=== PATIENT | female | born 1995 | race African-American/Black ===

== ENCOUNTER 2017-10-18 12:36 | Inpatient (IN) | payer OTHER ==
[~2017-10-18 12:36] MED LIST: Dexamethasone 20 MG/5 ML VIAL ONE; Glycopyrrolate 0.2 MG/ML 5 ML SYRINGE ONE; ISOVUE-370 76%-LOCM 1 ML ONE; Lidocaine 1% PF 5 ML VIAL ONE; Ondansetron HCl/PF 4 MG/2 ML Vial ONE; PROPOFOL 200 MG/20 ML VIAL ONE; Succinylcholine Chloride 20 MG/ML 10 ml SYRINGE FS ONE
[2017-10-18 14:03] LABS: #Eosinphils 0.2 thou/uL (0.0-0.7); #Lymphocytes 0.9 thou/uL (1.20-3.40); #Monocytes 0.6 thou/uL (0.11-0.59); #Neutrophils 14.2 thou/uL (1.40-6.50); %Basophils 0.2 % (0.0-1.0); %Eosinophils 1.1 % (0.0-10.0); %Lymphocytes 5.5 % (28.0-48.0); %Monocytes 3.8 % (0.0-4.0); %Neutrophils 89.5 % (31.0-61.0); Mean Corpuscular HGB CONC 32.5 g/dL (32.0-36.0); Mean Corpuscular Hemoglobin 26.5 pg (25.0-35.0); Mean Corpuscular Volume 81.3 fL (78.0-98.0); Mean Platelet Volume 7.7 fL (7.4-10.4); Platelet Count 347 thou/uL (130-400); RBC Distribution Width 13.3 % (11.5-14.5); Red Blood Cell (RBC) Count 4.55 mill/uL (4.00-5.20); White Blood Cell (WBC) Count 15.9 thou/uL (4.8-10.8)
[2017-10-18 14:32] LABS: ALT (SGPT) 11 U/L (8-55); AST (SGOT) 14 U/L (5-34); Alkaline Phosphatase 76 U/L (40-150); Anion Gap 16 mmol/L (10-20); BUN (Urea Nitrogen) 5 mg/dL (7.0-18.7); Calc. Creatinine Clearance 0 mL/min (70-130); Calcium 9.3 mg/dL (7.8-10.44); Carbon Dioxide 20 mmol/L (22-29); Chloride 102 mmol/L (98-107); Estimated GFR-MDRD 85; Globulin 4.5 g/dL (2.4-3.5); Glucose 75 mg/dL (70-105); Lipase 19 U/L (8-78); Protein, Total 8.5 g/dL (6.0-8.3); Sodium 135 mmol/L (136-145)
[2017-10-18 14:34] LABS: Pregnancy Test - Urine (BHCG) Negative (Negative); Pregu Control Background? CLEAR/WHITE (CLR/WHITE); Pregu Control Bar Appear? YES (CONTROL BAR); Specific Gravity 1.023 (1.002-1.036)
[2017-10-18 14:44] LABS: Potassium 2.8 mmol/L (3.5-5.1)
[2017-10-18] MEDS ORDERED: Potassium Chloride 20 MEQ/100 ML PREMIX BAG ONE (14:51)
[2017-10-18] MEDS ORDERED: Potassium Chloride 20 MEQ TAB ONE (14:51)
[2017-10-18] MEDS ORDERED: Magnesium Sulfate 2 GM in Sodium Chloride 0.9% 100 ML IVPB SCH (15:00)
[2017-10-18] MEDS ORDERED: Magnesium 2 GM/NS 0.9% 100 ML 2 GM in Premix Bag 1 BAG IVPB SCH (15:00)
[2017-10-18] MEDS ORDERED: Piperacillin/Tazobactam 3.375 GM VIAL ONE ×2 (15:21→21:03)
--- NOTE | 2017-10-18 16:00 | CT ---
CT ABDOMEN AND PELVIS WITH IV CONTRAST: HISTORY: Abdomen and pelvis pain. Fever. FINDINGS: The lung bases are clear. The liver, spleen, kidneys, adrenal glands, and pancreas are unremarkable. A moderate amount of free fluid is present within the cul-de-sac. Lobular low density lesion at th e lower uterine segment is 2.7 cm and likely represents a fibroid. Dilated fluid filled loops of distal ileum measure up to 4.8 cm in diameter. Between the dilated ile al loops, there is circumferential wall thickening of the ileum in at least two places, with strandin g in the adjacent fat. The inflammation extends to the level of the terminal ileum. The appendix is partially aerated at the base of the cecum, without immediately adjacent inflammation. Slightly enl arged lymph nodes are present within the right lower quadrant. Best demonstrated on axial images 69 through 71, in the right lower quadrant, are three small pockets of gas that are unable to be accounted for by bowel content. IMPRESSION: Extensive inflammation of the bowel within the lower abdomen and pelvis, primarily involving the dist al and terminal ileum. Small extraluminal pockets of gas are consistent with perforation. Exact sit e and cause are not evident. Small amount of free fluid within the cul-de-sac. While an inflammatory process may represent irritable bowel disease, the presence of extraluminal gas is worrisome for an acute perforation. Please consider surgical consultation. Findings were called to Dr. Lynn in the emergency department at 1506 hours. CODE CR POS: [id number]
[2017-10-18] MEDS ORDERED: Bupivacaine/Epinephrine 0.25% 30 ML VIAL ONE (18:11)
[2017-10-18] MEDS ORDERED: HYDROcodone/Acetaminophen 5/325 mg Tablet PO PRN ×2 (18:47)
[2017-10-18] MEDS ORDERED: Ondansetron HCl/PF 4 MG/2 ML Vial IVP PRN ×2 (18:47→23:50)
[2017-10-18] MEDS ORDERED: Acetaminophen 325 MG TAB PO PRN (18:47)
[2017-10-18] MEDS ORDERED: Ondansetron ODT 4 MG TAB SL PRN (18:47)
[2017-10-18] MEDS ORDERED: D5 1/2 NS w/40 mEq KCL 1,000 ML IV SCH (19:00)
[2017-10-18] MEDS ORDERED: Potassium Chloride 20 MEQ in Premix Bag 1 BAG IVPB SCH (19:00)
[2017-10-18 19:53] VITALS: BMI 35.8
[2017-10-18] MEDS ORDERED: Fentanyl 250 MCG/5 ML VIAL ONE (20:33)
[2017-10-18] MEDS ORDERED: Midazolam HCl 2 mg/2 ml Vial ONE (20:33)
[2017-10-18] MEDS ORDERED: Sodium Chloride 0.9% 10 ML ONE (21:04)
--- NOTE | 2017-10-18 21:55 | HP ---
REASON FOR CONSULT: Possible bowel perforation. HISTORY OF PRESENT ILLNESS: Ms. Cook is a 22-year-old woman with right lower quadrant pain since . This has been persistent through the weekend and was not getting any better, so she came to [facility] emergency room. The pain was made worse by walking or moving. She has not really eaten since , so does not know if eating would make the pain worse. She has not had any high fevers or shaking chills and she has no past medical history of stomach problems. There is no family history of infla mmatory bowel disease, but a CT scan done in the emergency room showed inflammation of the terminal i leum with a moderate amount of free fluid and some free air in the area of the terminal ileum. REVIEW OF SYSTEMS: Ten system review of systems is negative except per HPI and some diarrhea and nory sea and anorexia. PAST MEDICAL HISTORY: None. PAST SURGICAL HISTORY: None. FAMILY HISTORY: Diabetes in her grandmother. No chronic medications. ALLERGIES: No known drug allergies. SOCIAL HISTORY: The patient does not smoke, drink or use illicit drugs. PHYSICAL EXAMINATION: VITAL SIGNS: Temperature 98.5, heart rate 102, blood pressure 128/67, respirations 16, 98% saturated on room air. GENERAL: Reveals a healthy appearing young woman in no acute distress, who is moving about [facility]. HEENT: Unremarkable. She is not jaundiced or icteric. She is not flushed or toxic. HEART: Regular in its rate and rhythm without murmurs, rubs or gallops. LUNGS: Clear to auscultation bilaterally. ABDOMEN: Soft and nondistended. She is diffusely mildly tender to palpation with more severe tender ness in the right lower quadrant and suprapubic area. She does have some mild rebound tenderness, bu t does not exhibit rigidity, or guarding. No palpable masses or hernias. EXTREMITIES: Warm and well perfused with normal pulses and no edema. NEUROLOGIC: No focal deficits. PSYCHIATRIC: Alert, oriented and appropriate. LABORATORY DATA AND IMAGING DATA: White count is elevated at 15,000. Potassium is low, but other el ectrolytes are unremarkable. CT images are reviewed and I agree with the written report, the appendi x is normal and filled with gas. ASSESSMENT: Possible bowel perforation associated with terminal ileitis suspicious for Crohn's disea se or inflammatory bowel disease. I have recommended diagnostic laparoscopy and washout if the bowel perforation is identified, then repair or resection may need to be undertaken if the bowel appears t o be significantly inflamed and an ileostomy might be necessary as reanastomosis in the setting of an active Crohn's flare is risky for leak. In addition, she does have evidence of Crohn's disease and appendectomy to prevent diagnostic confusion in the future will be done unless the cecum is also infl tyler. The diagnosis and recommended treatment was discussed with the patient. Inherent risks of the surgery including bleeding, infection, risks of anesthesia, damage to intestine and need for ostomy were discussed with the patient. She understands and accepts these risks and wishes to proceed. She has received Zosyn in the emergency room.
[2017-10-18] MEDS ORDERED: Piperacillin/Tazobactam 4.5 GM in Sodium Chloride 0.9% 100 ML IVPB SCH (22:00)
[2017-10-18] MEDS ORDERED: HYDROmorphone 0.5 MG/0.5 ML SYRINGE ONE (22:06)
[2017-10-19] MEDS ORDERED: hydrALAZINE 20 MG/ML VIAL SLOW IVP PRN (00:03)
[2017-10-19] MEDS ORDERED: Promethazine HCl 25 MG/ML VIAL IM PRN ×2 (00:03→02:42)
[2017-10-19] MEDS ORDERED: Ondansetron HCl/PF 4 MG/2 ML Vial IVP PRN ×2 (00:03→02:42)
[2017-10-19] MEDS ORDERED: Fentanyl 100 MCG/2 ML VIAL ONE (00:24)
[2017-10-19] MEDS ORDERED: D5 1/2 NS w/20 mEq KCL 1,000 ML ONE (00:39)
[2017-10-19] MEDS ORDERED: Ketorolac Tromethamine 30 MG/ML VIAL IVP SCH (01:45)
[2017-10-19] MEDS: D5 1/2 NS w/20 mEq KCL 1,000 ML IV SCH ×3 (01:59→18:51)
[2017-10-19] MEDS ORDERED: diphenhydrAMINE 25 MG CAP PO PRN (02:42)
[2017-10-19] MEDS ORDERED: diphenhydrAMINE 50 MG/ML VIAL IVP PRN (02:42)
[2017-10-19] MEDS ORDERED: Naloxone HCl 0.4 mg/ml Vial IV PRN (02:42)
[2017-10-19] MEDS ORDERED: diphenhydrAMINE 50 MG/ML VIAL IM PRN (02:42)
[2017-10-19] MEDS ORDERED: Zolpidem Tartrate 5 MG TAB PO PRN (02:42)
[2017-10-19] MEDS ORDERED: Communication Order-Pharmacy FS SCH (02:45)
[2017-10-19] MEDS: fentaNYL Citrate/PF 2,000 MCG in Sodium Chloride 0.9% 60 ML IV PRN (02:56)
[2017-10-19] MEDS: Acetaminophen 1,000 MG in Premix Bag 1 BAG IVPB SCH ×4 (03:44→22:37)
[2017-10-19] MEDS ORDERED: Acetaminophen 1,000 MG in Premix Bag 1 BAG IVPB SCH (06:00)
[2017-10-19] MEDS: Ketorolac Tromethamine 30 MG/ML VIAL IVP SCH ×3 (06:10→18:45)
[2017-10-19] MEDS: Piperacillin/Tazobactam 3.375 GM in Sodium Chloride 0.9% 100 ML IVPB SCH ×3 (06:10→18:46)
[2017-10-19] MEDS: Famotidine/PF 20 mg/2ml Vial SLOW IVP SCH ×2 (10:54→22:36)
[2017-10-19] MEDS: Famotidine 20 MG TAB PO SCH ×2 (11:51→23:20)
[2017-10-19] MEDS: Enoxaparin Sodium 40 MG/0.4 ML SYRINGE SC SCH (22:36)
--- NOTE | 2017-10-19 23:47 | CON ---
DATE OF CONSULTATION: 10/19/2017 HISTORY OF PRESENT ILLNESS: Ms. Cook is a 22-year-old female who came in last night with severe abd ominal pain. She was found to have free air on CAT scan and brought to the operating room, where she was found to have perforated ileum with inflammation and creeping fat consistent with inflammatory b owel disease. She had a foot of her distal small bowel resected and she had a primary ileocolonic an astomosis. Dr. Cortez notes that there were no signs of abscess or prolonged infection. She thinks the perforation was acute. Ms. Cook feels better this morning. We have been asked to see her with regard to the possibility that she could have Crohn's disease. In talking with her, she said she stubbs s had problems on and off with her stomach for some time. 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 She said back when she was a senior in high school, she kind of started having some problems where at time she gets indigestion and reflux, not want to eat. 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 She denies any history of arthralg ias, myalgias, or rashes. She has history of oral ulcers. She really was not having any lower abdom inal pain, but had some alternating bowel function and was just having a lot of reflux. It was diffi cult to control more recently. She said she has been seen at our office and had been treated for Hel icobacter pylori. She had some other evaluation there and had been there a couple of times, but she does not remember who her physician was. CAT scan on admission besides the perforation did show extensive inflammation of her bowel from lower abdomen and pelvis involving the distal and terminal ileum. Also, there were some extraluminal gas pockets, which precipitated surgery. Presently, she is feeling well. PAST MEDICAL HISTORY: Otherwise negative except for reflux. PAST SURGICAL HISTORY: None. FAMILY HISTORY: Diabetes in grandmother. No chronic medical problems or malignancy as far she knows . She did have one maternal grandmother who had an ostomy before, but I think that was from chronic obstipation and constipation. ALLERGIES: None known. PRESENT MEDICATIONS: Tylenol p.r.n., fentanyl p.r.n., Pepcid p.r.n., Toradol p.r.n., , Zofran, Zosyn. PHYSICAL EXAMINATION: GENERAL: The patient is resting comfortably in bed. Her parents were at the bedside. She is an Afr ican-[place]incent[place] female in no distress. VITAL SIGNS: Temperature was 98, pulse 70. She was mildly febrile and her pulse 110 on admission. Blood pressure 104/70. HEENT: Oropharynx is without lesions and without any ulcers or erosions. NECK: Supple without adenopathy. LUNGS: Clear. HEART: Regular rate and rhythm without murmurs. ABDOMEN: Slightly tender without rebound or guarding. EXTREMITIES: No clubbing, cyanosis, or edema. NEUROLOGIC: Grossly intact. SKIN: Without lesions. LABORATORY DATA: In July, she had a white count of 8.4 with hemoglobin 11.8 and platelets of 539. Wh ite count this admission was 15.9 with hemoglobin 12.0, platelet count 347. On admission, her sodium was 135, potassium 2.8, BUN and creatinine of 5 and 0.85. Liver function test is normal. Protein 8 .5, albumin 4, globulin 4.5, lipase 19. Serology for H. pylori have been positive back in July. ASSESSMENT: This is a 22-year-old female who began to have severe lower abdominal pain on Wednesday, stubbs s progressed. She also presented yesterday with a CT showing some chronic inflammatory changes in di stal small bowel and free air around the cecum and ileum which sounds a perforation. She was brought to the OR where she was found to have about a foot of creeping fat in the distal terminal ileum, and thickened and malformed bowel with proximal dilatation. This was resected and the free air and free fluid was cleared in the lower abdomen. She was given a primary anastomosis. She is doing well now . In all likelihood, this probably represents Crohn's disease. It seems that she did not have any s ignificant lower GI symptoms in talking to her and her family, but for several years, she has had on and off issues with some weight loss at times, difficulty with bowel function that has been somewhat nonspecific, and a lot of reflux and epigastric discomfort. In fact, she had recently been treated f or Helicobacter pylori. In retrospect, this is probably all ileal Crohn's. RECOMMENDATIONS: We would check QuantiFERON, hepatitis panels. I would recommend that she get immun izations for viruses such as shingles. We will await for pathology to come back and then she w ill probably need to be instituted on some type of therapy, probably biologic to help prevent remissi on in the setting of Crohn's with previous perforation requiring surgery. That would all again depen d on making a diagnosis of Crohn's; however, another etiology could be possible such as acute gastrit is with perforation, lymphoma, malignancy, or Meckel's disease with diverticulitis and ileum, althoug h these seem less likely from the appearances of the creeping fat and some chronic features on the CA T scan shows proximal small bowel dilatation of the terminal ileum.
[2017-10-20] MEDS: Ketorolac Tromethamine 30 MG/ML VIAL IVP SCH ×2 (00:28→06:20)
[2017-10-20] MEDS: Piperacillin/Tazobactam 3.375 GM in Sodium Chloride 0.9% 100 ML IVPB SCH ×5 (00:29→23:42)
[2017-10-20] MEDS ORDERED: Sodium Chloride 0.9% 500 ML IV SCH (02:00)
[2017-10-20 06:33] LABS: Hemoglobin 9.7 g/dL (12.0-16.0); Mean Corpuscular HGB CONC 31.8 g/dL (32.0-36.0); Mean Corpuscular Hemoglobin 26.2 pg (25.0-35.0); Mean Corpuscular Volume 82.6 fL (78.0-98.0); Mean Platelet Volume 7.2 fL (7.4-10.4); Platelet Count 357 thou/uL (130-400); RBC Distribution Width 13.5 % (11.5-14.5); Red Blood Cell (RBC) Count 3.68 mill/uL (4.00-5.20); White Blood Cell (WBC) Count 11.5 thou/uL (4.8-10.8)
[2017-10-20 06:55] LABS: Anion Gap 10 mmol/L (10-20); BUN (Urea Nitrogen) Less than 4 mg/dL (7.0-18.7); Calc. Creatinine Clearance 194 mL/min (70-130); Calcium 7.3 mg/dL (7.8-10.44); Carbon Dioxide 19 mmol/L (22-29); Chloride 113 mmol/L (98-107); Estimated GFR-MDRD Greater than 90; Glucose 122 mg/dL (70-105); Potassium 3.5 mmol/L (3.5-5.1); Sodium 138 mmol/L (136-145)
[2017-10-20 07:08] LABS: HBSAg Index 0.22 S/CO (0-0.99); Hep B Surf Ag Non-Reactive S/CO (NonReactive)
[2017-10-20] MEDS: D5 1/2 NS w/20 mEq KCL 1,000 ML IV SCH ×3 (07:43→18:17)
[2017-10-20] MEDS: Famotidine/PF 20 mg/2ml Vial SLOW IVP SCH ×2 (08:45→21:16)
[2017-10-20 08:59] LABS: Band 21 % (5-11); Burr Cells SLIGHT = 2-5 cells (100X) (0-1/hpf); Hypochromia SLIGHT = 6-15 cells (100X) (0-5/hpf); Lymphocytes 5 % (28-48); MDiff Complete? YES; Monocytes 3 % (0-4); Neutrophil 71 % (31-61); Ovalocytes SLIGHT = 2-5 cells (100X) (0-1/hpf); PLT Morphology Comment Appears Adequate; Polychromasia SLIGHT = 2-3 cells (100X) (0-2/hpf)
[2017-10-20] MEDS: Famotidine 20 MG TAB PO SCH ×2 (09:10→20:49)
[2017-10-20 09:39] LABS: Hep B Surf AB Reactive (NonReactive)
[2017-10-20 09:40] LABS: HBSAB Concentration 33.19 mIU/mL
--- NOTE | 2017-10-20 16:33 | PDOC.GSPN ---
Surgery Progress Note: Subj - Subjective Narrative: Pain is better today. She had a little nausea earlier but no vomiting. She has started to feel some rumbling of gas but has not passed any yet. She is afebrile with normal vital signs. Her abdomen is soft and nondistended. Bowel sounds are present. Per vein the is in place and ALDEN drainage is serous. She has presumptive Escherichia coli on her peritoneal cultures. Assessment/plan: Doing well status post ileocecectomy. Awaiting return of bowel function. Surgery Progress Note: Obj - Vital signs Vital signs: Vital Signs - Most Recent Temp Pulse Resp BP Pulse Ox 98.4 F 96 16 95/65 99 10/20/17 15:21 10/20/17 15:21 10/20/17 15:21 10/20/17 15:21 10/20/17 15:21 Surgery Progress Note: Results - Labs Result Diagrams: 10/20/17 06:09 10/20/17 06:09 Lab results: Laboratory Results - last 24 hr 10/20/17 10/20/17 10/20/17 06:09 06:09 06:09 WBC 11.5 H RBC 3.68 L Hgb 9.7 L Hct 30.4 L MCV 82.6 MCH 26.2 MCHC 31.8 L RDW 13.5 Plt Count 357 MPV 7.2 L Neutrophils % (Manual) 71 H Band Neuts % (Manual) 21 H Lymphocytes % (Manual) 5 L Monocytes % (Manual) 3 Neutrophils # Not Reportable Lymphocytes # Not Reportable Hypochromia SLIGHT = 6-15 cells Plt Morphology Comment Appears Adequate Polychromasia SLIGHT = 2-3 cells Ovalocytes SLIGHT = 2-5 cells Leisenring Cells SLIGHT = 2-5 cells Sodium 138 Potassium 3.5 Chloride 113 H Carbon Dioxide 19 L Anion Gap 10 BUN Less than 4 L Creatinine 0.65 Estimated GFR (MDRD) Greater than 90 Glucose 122 H Calcium 7.3 L Hep Bs Antigen Non-Reactive Hep Bs Antibody Reactive Hep Bs Antibody Index 33.19
--- NOTE | 2017-10-20 18:23 | PRG ---
DATE OF SERVICE: 10/20/2017 REASON FOR CONSULTATION: Ileal perforation, possible Crohn's disease. SUBJECTIVE: The patient states that she is doing well today with no acute events or problems overnight. 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 She has not had a bowel movement since the surgery on the nor is she passing any gas today. Currently, denies any nausea, vomiting, fevers, chills, shortness of breath, odynophagia, dysphagia. OBJECTIVE: VITAL SIGNS: Temperature 98.4, pulse 96, blood pressure 95/65, respiratory rate 16, satting 99% on room air. GENERAL: The patient is lying in bed in no acute distress. Alert and oriented x4. CARDIOVASCULAR: Regular rate and rhythm. PULMONARY: Clear to auscultation bilaterally. ABDOMEN: Normoactive bowel sounds, soft, nondistended. Tenderness to palpation in the right lower quadrant and periumbilical regions. EXTREMITIES: No cyanosis, clubbing or edema. LABORATORY DATA: CBC with a white blood cell count of 11.5, hemoglobin 9.7, hematocrit 30.4, platelets 357. Chemistry with sodium 138, potassium 3.5, chloride 113, CO2 19, BUN less than 4, creatinine 0.65, glucose 122. Serology show negative hepatitis B surface antigen and positive hepatitis B surface antibody, indicating active immunity towards hepatitis B. Pathology specimen is consistent with Crohns disease. ASSESSMENT AND PLAN: The patient is a 22-year-old female with past medical history of GERD presenting with acute onset of right lower quadrant abdominal pain with CT findings consistent with perforation of the distal ileum and pathology specimen consistent with Crohn's disease. CROHN'S DISEASE: The patient is presenting with acute onset of right lower quadrant abdominal pain, who while in the [facility], was noted to have free air on CAT scan. She was taken emergently to the operating room with the findings of a perforated ileum with surrounding increased inflammation and creeping fat concerning for inflammatory bowel disease. The area in question was surgically resected and sent to pathology for evaluation. Pathology review today showed the presence of chronic active inflammation with granulomata surrounding the region of perforation consistent with Crohn's disease. Given this new diagnosis of Crohn's disease, she will need to be placed on immunomodulator (6MP or azathioprine) plus biologic therapy in the near future given the presence of ileal disease (considered complicated Crohn's disease); however, in the postoperative period, holding these medications for now would be prudent to promote healing of the surgical anastomosis. I would rather start these medications either on discharge or shortly after discharge in the GI clinic. RECOMMENDATIONS: 1. Will follow up on QuantiFERON TB testing prior to initiation of immunosuppression with immunomodulator and/or biologic. 2. We will also obtain a TPMT level prior to placement on immunomodulator. 3. Pain control per primary team. 4. Would continue broad spectrum antibiotic therapy for presumptive diagnosis of E. coli within the peritoneal fluid secondary to ileal perforation. We will continue to follow. Please call with any questions. MTDD
[2017-10-20] MEDS: fentaNYL Citrate/PF 2,000 MCG in Sodium Chloride 0.9% 60 ML IV PRN (20:45)
[2017-10-20] MEDS: Enoxaparin Sodium 40 MG/0.4 ML SYRINGE SC SCH (20:48)
[2017-10-21] MEDS: D5 1/2 NS w/20 mEq KCL 1,000 ML IV SCH ×4 (03:44→23:54)
[2017-10-21] MEDS: Piperacillin/Tazobactam 3.375 GM in Sodium Chloride 0.9% 100 ML IVPB SCH ×4 (06:13→23:54)
[2017-10-21] MEDS: Famotidine/PF 20 mg/2ml Vial SLOW IVP SCH ×2 (08:55→21:16)
[2017-10-21] MEDS: Famotidine 20 MG TAB PO SCH ×2 (08:57→21:16)
[2017-10-21 11:16] LABS: #Basophils 0.2 thou/uL (0.0-0.2); #Eosinphils 0.2 thou/uL (0.0-0.7); #Lymphocytes 0.8 thou/uL (1.20-3.40); #Monocytes 0.9 thou/uL (0.11-0.59); #Neutrophils 9.4 thou/uL (1.40-6.50); %Basophils 1.4 % (0.0-1.0); %Eosinophils 1.8 % (0.0-10.0); %Lymphocytes 7.3 % (28.0-48.0); %Neutrophils 81.6 % (31.0-61.0); Mean Corpuscular HGB CONC 32.4 g/dL (32.0-36.0); Mean Corpuscular Hemoglobin 26.6 pg (25.0-35.0); Mean Corpuscular Volume 82.1 fL (78.0-98.0); Mean Platelet Volume 6.9 fL (7.4-10.4); Platelet Count 417 thou/uL (130-400); RBC Distribution Width 13.5 % (11.5-14.5); Red Blood Cell (RBC) Count 3.75 mill/uL (4.00-5.20); White Blood Cell (WBC) Count 11.5 thou/uL (4.8-10.8)
[2017-10-21 11:37] LABS: Anion Gap 10 mmol/L (10-20); BUN (Urea Nitrogen) Less than 4 mg/dL (7.0-18.7); Calc. Creatinine Clearance 173 mL/min (70-130); Calcium 7.9 mg/dL (7.8-10.44); Carbon Dioxide 21 mmol/L (22-29); Chloride 111 mmol/L (98-107); Estimated GFR-MDRD Greater than 90; Glucose 107 mg/dL (70-105); Potassium 3.6 mmol/L (3.5-5.1); Sodium 138 mmol/L (136-145)
--- NOTE | 2017-10-21 12:47 | PRG ---
DATE OF SERVICE: 10/21/2017 REASON FOR CONSULTATION: Crohn's disease management. 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 She continues to not had a bowel mov ement, nor does she passing gas within the last 24 hours. Currently, denies any nausea, vomiting, fe vers, chills, shortness of breath, odynophagia, dysphagia, rashes, increased joint pain or sudden esa nges in vision. OBJECTIVE: VITAL SIGNS: Temperature 98.6, pulse 96, blood pressure 106/72, respiratory rate 14, satting 97% on room air. GENERAL: Patient is lying in bed in no acute distress. Alert and oriented x4. CARDIOVASCULAR: Regular rate and rhythm. PULMONARY: Clear to auscultation bilaterally. ABDOMEN: Normoactive bowel sounds, soft, nondistended. Tenderness to palpation in the right lower q uadrant, periumbilical regions and trocar sites. EXTREMITIES: No cyanosis, clubbing or edema. LABORATORY DATA: CBC with white blood cell count of 11.5, hemoglobin 10, hematocrit 30.8, platelets 417. Chemistry with sodium of 138, potassium 3.6, chloride 111, CO2 21, BUN less than 4, creatinine 0.73, glucose 107. IMAGING DATA: No current GI imaging is available for review. ASSESSMENT AND PLAN: The patient is a 22-year-old female with past medical history of GERD presentin g with acute onset of right lower quadrant abdominal pain with CT and surgical pathology specimens co nsistent with Crohn's disease. Crohn's disease: The patient initially presented with acute onset of right lower quadrant abdominal pain, who was noted to have free air on CT scan on admission. She was emergently taken to the operat ing room with the findings of a perforated ileum with surrounding increased inflammation and creeping fat concerning for inflammatory bowel disease. Surgical pathology specimen showed chronic active in flammation with granulomata surrounding the region of perforation consistent with Crohn's disease. G iven this new diagnosis of Crohn's disease, she will ultimately need to be placed on immunomodulator plus biologic therapy within the next 4 weeks to prevent postoperative recurrence of Crohn's disease; however, in the immediate postoperative period holding these medications for now would be prudent to promote healing of the surgical anastomosis. RECOMMENDATIONS: 1. We will follow up on the QuantiFERON TB testing prior to initiation of immunosuppression with imm unomodulator and biologic therapy. 2. We will also obtain a TPMT level prior to placement on immunomodulator. 3. Literature shows the placement on both immunomodulator and biologic therapy has proven to be more efficacious in treatments with complicated Crohn's disease. Again, these will need to be started wi thin 4 weeks of surgery. 4. Pain control per primary team. 5. We would continue broad spectrum antibiotic therapy for presumptive diagnosis of E. coli within t he peritoneal fluid secondary to ileal perforation. We will continue to follow. Please call with any questions.
--- NOTE | 2017-10-21 19:09 | PDOC.GSPN ---
Surgery Progress Note: Subj - Subjective Narrative: Patient is feeling better today. She is able to ambulate in the halls. She has not passed any gas but is not nauseated. Pathology confirmed diagnosis of Crohn' s. Assessment/plan: Doing well overall but still awaiting return of bowel function. Since she had a partial obstruction from her Crohn's disease this may take a little longer to get back to normal. Continue antibiotics and ambulation. Surgery Progress Note: Obj - Vital signs Vital signs: Vital Signs - Most Recent Temp Pulse Resp BP Pulse Ox 98.6 F 95 14 102/72 100 10/21/17 16:30 10/21/17 16:30 10/21/17 16:30 10/21/17 16:30 10/21/17 16:30 Surgery Progress Note: Results - Labs Result Diagrams: 10/21/17 10:51 10/21/17 10:51 Lab results: Laboratory Results - last 24 hr 10/21/17 10/21/17 10:51 10:51 WBC 11.5 H RBC 3.75 L Hgb 10.0 L Hct 30.8 L MCV 82.1 MCH 26.6 MCHC 32.4 RDW 13.5 Plt Count 417 H MPV 6.9 L Neutrophils % 81.6 H Lymphocytes % 7.3 L Monocytes % 8.0 H Eosinophils % 1.8 Basophils % 1.4 H Neutrophils # 9.4 H Lymphocytes # 0.8 L Monocytes # 0.9 H Eosinophils # 0.2 Basophils # 0.2 Sodium 138 Potassium 3.6 Chloride 111 H Carbon Dioxide 21 L Anion Gap 10 BUN Less than 4 L Creatinine 0.73 Estimated GFR (MDRD) Greater than 90 Glucose 107 H Calcium 7.9
[2017-10-21] MEDS: Enoxaparin Sodium 40 MG/0.4 ML SYRINGE SC SCH (21:16)
[2017-10-22] MEDS: Acetaminophen 1,000 MG in Premix Bag 1 BAG IVPB PRN ×2 (01:03→16:21)
[2017-10-22] MEDS: Piperacillin/Tazobactam 3.375 GM in Sodium Chloride 0.9% 100 ML IVPB SCH ×3 (05:19→17:51)
[2017-10-22 06:59] LABS: Hemoglobin 9.6 g/dL (12.0-16.0); Mean Corpuscular HGB CONC 30.9 g/dL (32.0-36.0); Mean Corpuscular Hemoglobin 25.9 pg (25.0-35.0); Mean Corpuscular Volume 83.7 fL (78.0-98.0); Mean Platelet Volume 7.6 fL (7.4-10.4); Platelet Count 399 thou/uL (130-400); RBC Distribution Width 13.7 % (11.5-14.5); Red Blood Cell (RBC) Count 3.73 mill/uL (4.00-5.20)
[2017-10-22 08:31] LABS: Band 12 % (5-11); Burr Cells SLIGHT = 2-5 cells (100X) (0-1/hpf); Eosinophils 1 % (0-10); Lymphocytes 12 % (28-48); MDiff Complete? YES; Monocytes 8 % (0-4); Neutrophil 67 % (31-61); PLT Morphology Comment Appears Adequate; Polychromasia SLIGHT = 2-3 cells (100X) (0-2/hpf)
[2017-10-22] MEDS: D5 1/2 NS w/20 mEq KCL 1,000 ML IV SCH (09:04)
[2017-10-22] MEDS: Famotidine 20 MG TAB PO SCH ×2 (09:05→20:46)
[2017-10-22] MEDS: Famotidine/PF 20 mg/2ml Vial SLOW IVP SCH ×2 (09:05→20:46)
[2017-10-22 11:59] LABS: Ref Lab Test Ordered TPMT ENZ; Reference Lab Name LABCORP
--- NOTE | 2017-10-22 15:52 | PRG ---
DATE OF SERVICE: 10/22/2017 REASON FOR CONSULTATION: Crohn's disease. SUBJECTIVE: The patient states that overnight she did have a fever that was documented as 102.2 in t he chart. She was subsequently given IV Tylenol with return of the temperature to normal with no rec urrent fever today. She also adds that she has been able to get up and walk around and has had no di fficulty doing so, although she does continue to have some pain in the right lower quadrant. She als o adds that she has been passing some flatus, although she has not had a bowel movement as of yet. C urrently, she denies any nausea, vomiting, odynophagia, dysphagia or GI bleeding. OBJECTIVE: VITAL SIGNS: Temperature 97.9, pulse 97, blood pressure 119/81, respiratory rate 18, satting 95% on room air. GENERAL: The patient actually is walking around, in no acute distress. Alert and oriented x4. HEART: Regular rate and rhythm. PULMONARY: Clear to auscultation bilaterally. ABDOMEN: Normoactive bowel sounds, soft, nondistended. Tenderness to palpation in the right lower q uadrant, periumbilical regions and trocar sites. EXTREMITIES: No cyanosis, clubbing or edema. LABORATORY DATA: CBC with a white blood cell count of 11, hemoglobin 9.6, hematocrit 31.2, platelets 399,000. TPMT level pending. IMAGING DATA: No current GI imaging is available for review. ASSESSMENT AND PLAN: The patient is a 22-year-old female with past medical history of gastroesophage al reflux disease, presenting with acute onset of right lower quadrant abdominal pain with perforated ileum and pathology specimen consistent with Crohn's disease. Crohn's disease. The patient initially presented with acute onset of right lower quadrant abdominal pain and was also noted to have free air on CT scan on admission. She was taken emergently to the op erating room where resection of the bowel was performed with findings of increased inflammation surro unding the ileum and creeping fat concerning for inflammatory bowel disease. The surgical pathology specimen showed chronic active inflammation with granulomata consistent with Crohn's disease. Given this new diagnosis of Crohn's disease, she will ultimately need to be placed on immunomodulator plus biologic therapy within the next 4 weeks given her ileal disease (complicated disease). However, wit h the recent fever and diagnosis of Escherichia coli bacteria within the peritoneal fluid, immunosupp ression is not prudent at this time. RECOMMENDATIONS: 1. We will follow up on both the QuantiFERON TB testing and TPMT levels prior to initiation of immun osuppression with immunomodulator and biologic therapy. 2. The patient will need to be started on both immunomodulator and biologic therapy within 4 weeks o f surgery. 3. Pain control per primary team. 4. Agree with antibiotic therapy for E. coli within the peritoneal fluid secondary to ileal perforat ion. At this time, further management of her Crohn's disease is pending healing of the anastomotic site as well as adequate treatment of the peritoneal fluid infection. We will sign off at this time. Donita blankenship have the patient follow up within 2 weeks of discharge from this hospitalization, preferably prior to the , which is the onset of school. Please call with any additional questions.
[2017-10-22] MEDS: Enoxaparin Sodium 40 MG/0.4 ML SYRINGE SC SCH (20:46)
--- NOTE | 2017-10-22 23:18 | PDOC.GSPN ---
Surgery Progress Note: Subj - Subjective Narrative: Patient had fever last night but has since defervesced. She states that she feels much better today and has passed some gas. No bowel movement yet. No nausea and tolerating her clear liquid diet. ALDEN output has gone down and is completely serous. White count has declined slightly and her bandemia has improved somewhat. Abdomen is soft and nondistended. Bowel sounds are present. Prevena is in place. Assessment/plan: Doing well clinically. If she continues to spike fevers or has a rise in her white count, repeat CT of the abdomen and pelvis will be obtained. Since she is passing flatus and tolerating clear liquid diet advanced her to fulls. Surgery Progress Note: Obj - Vital signs Vital signs: Vital Signs - Most Recent Temp Pulse Resp BP Pulse Ox 98.3 F 75 18 127/86 100 10/22/17 20:00 10/22/17 20:00 10/22/17 20:00 10/22/17 20:00 10/22/17 20:00 Surgery Progress Note: Results - Labs Result Diagrams: 10/22/17 01:21 10/21/17 10:51
[2017-10-23] MEDS: Piperacillin/Tazobactam 3.375 GM in Sodium Chloride 0.9% 100 ML IVPB SCH ×3 (00:11→12:59)
[2017-10-23] MEDS ORDERED: Acetaminophen 500 MG TAB PO PRN (04:42)
[2017-10-23 05:54] LABS: Anion Gap 13 mmol/L (10-20); BUN (Urea Nitrogen) Less than 4 mg/dL (7.0-18.7); Calc. Creatinine Clearance 175 mL/min (70-130); Calcium 8.6 mg/dL (7.8-10.44); Carbon Dioxide 24 mmol/L (22-29); Chloride 107 mmol/L (98-107); Estimated GFR-MDRD Greater than 90; Glucose 80 mg/dL (70-105); Potassium 3.8 mmol/L (3.5-5.1); Sodium 140 mmol/L (136-145)
[2017-10-23 06:32] LABS: #Eosinphils 0.4 thou/uL (0.0-0.7); #Lymphocytes 1.2 thou/uL (1.20-3.40); #Neutrophils 7.9 thou/uL (1.40-6.50); %Basophils 0.2 % (0.0-1.0); %Eosinophils 3.5 % (0.0-10.0); %Lymphocytes 11.6 % (28.0-48.0); %Monocytes 9.5 % (0.0-4.0); %Neutrophils 75.3 % (31.0-61.0); Band 17 % (5-11); Eosinophils 3 % (0-10); Hemoglobin 10.5 g/dL (12.0-16.0); Lymphocytes 11 % (28-48); MDiff Complete? YES; Mean Corpuscular HGB CONC 31.5 g/dL (32.0-36.0); Mean Corpuscular Volume 82.7 fL (78.0-98.0); Monocytes 8 % (0-4); Neutrophil 61 % (31-61); PLT Morphology Comment Appears Increased; Platelet Count 486 thou/uL (130-400); RBC Distribution Width 13.6 % (11.5-14.5); Red Blood Cell (RBC) Count 4.04 mill/uL (4.00-5.20); White Blood Cell (WBC) Count 10.4 thou/uL (4.8-10.8)
[2017-10-23] MEDS: Famotidine 20 MG TAB PO SCH ×2 (07:53→20:03)
[2017-10-23] MEDS: Famotidine/PF 20 mg/2ml Vial SLOW IVP SCH ×2 (07:58→20:11)
[2017-10-23] MEDS ORDERED: HYDROcodone/Acetaminophen 7.5/325 mg Tablet PO PRN (09:10)
[2017-10-23] MEDS ORDERED: Fentanyl 100 MCG/2 ML VIAL SLOW IVP PRN (09:11)
[2017-10-23] MEDS: HYDROcodone/Acetaminophen 7.5/325 mg Tablet PO PRN (12:27)
[2017-10-23] MEDS: metroNIDAZOLE 500 MG TAB PO SCH ×2 (14:35→20:03)
[2017-10-23] MEDS: Enoxaparin Sodium 40 MG/0.4 ML SYRINGE SC SCH (20:03)
--- NOTE | 2017-10-23 22:59 | PDOC.GSPN ---
Surgery Progress Note: Subj - Subjective Narrative: Low grade fever yesterday AM but WBC down and feels better. Larry fulls and had BM so advanced to soft diet. Minimal serous ALDEN output. May DC home tomorrow if afebrile. Surgery Progress Note: Obj - Vital signs Vital signs: Vital Signs - Most Recent Temp Pulse Resp BP Pulse Ox 98.3 F 83 18 117/81 100 10/23/17 20:05 10/23/17 20:05 10/23/17 20:05 10/23/17 20:05 10/23/17 20:05 Surgery Progress Note: Results - Labs Result Diagrams: 10/23/17 04:29 10/23/17 04:29
[2017-10-24] MEDS: HYDROcodone/Acetaminophen 7.5/325 mg Tablet PO PRN ×3 (00:16→14:54)
[2017-10-24] MEDS: Famotidine/PF 20 mg/2ml Vial SLOW IVP SCH (07:58)
[2017-10-24] MEDS: metroNIDAZOLE 500 MG TAB PO SCH ×2 (09:31→14:54)
[2017-10-24] MEDS: Famotidine 20 MG TAB PO SCH (09:31)
[2017-10-24 10:37] LABS: Band 16 % (5-11); Eosinophils 3 % (0-10); Hemoglobin 10.1 g/dL (12.0-16.0); Lymphocytes 19 % (28-48); MDiff Complete? YES; Mean Corpuscular HGB CONC 32.5 g/dL (32.0-36.0); Mean Corpuscular Hemoglobin 26.6 pg (25.0-35.0); Mean Corpuscular Volume 81.8 fL (78.0-98.0); Mean Platelet Volume 6.6 fL (7.4-10.4); Monocytes 2 % (0-4); Neutrophil 60 % (31-61); Platelet Count 574 thou/uL (130-400); RBC Distribution Width 13.6 % (11.5-14.5); Red Blood Cell (RBC) Count 3.81 mill/uL (4.00-5.20); White Blood Cell (WBC) Count 7.7 thou/uL (4.8-10.8)
[2017-10-24 11:16] VITALS: BP 116/79; TEMP 98.2
--- NOTE | 2017-10-25 15:25 | OP ---
DATE OF PROCEDURE: 10/18/2017 PROCEDURE PERFORMED: Laparoscopic hand-assisted ileocecectomy. PREOPERATIVE DIAGNOSIS: Perforated viscus. POSTOPERATIVE DIAGNOSIS: Perforated viscus consistent with perforated ileocecal Crohn's disease. HISTORY: Ms. Cook is a 22-year-old woman who presented to the hospital with worsening abdominal mian n. She was found to have free air and free fluid on CT as well as inflammatory changes of the termin al ileum concerning for Crohn's disease. Recommendation was made to proceed immediately to the opera ting room for emergent resection and possible ostomy. DESCRIPTION OF PROCEDURE: After informed consent was obtained and appropriate preoperative antibioti cs administered, the patient was taken to the operating room. She was placed in supine position and general endotracheal anesthesia was administered. The stomach was decompressed with an OG tube and t he bladder decompressed with a Tristan catheter and the patient's abdomen was prepped and draped in a s tandard sterile fashion. Local anesthesia was infused to the skin and subcutaneous tissues at the um bilicus and a periumbilical incision was made. Dissection was carried down to the fascia, which was opened in the midline and purulent peritoneal fluid encountered. There were no significant adhesions at the level of the umbilicus. A GelPort was placed and carbon dioxide gas insufflated into the abd ominal cavity. The patient tolerated this well. Additional dissecting ports were then placed under direct laparoscopic vision and the abdomen surveyed. The patient was noted to have creeping fat and thickening of the terminal ileum consistent with Crohn's disease. There was purulent fluid in the ab dominal cavity, which was suctioned out and sent for Gram stain and culture. Multiple interloop adhe sions were broken down between the bowel loops and a likely perforated area identified in the termina l ileum. The peritoneum was very thickened and this was carefully divided with LigaSure to allow ren vation of the cecum and ileum. The remainder of the colon was grossly normal to inspection and palpa tion and there was approximately a foot of terminal ileum involved in the Crohn's disease with the pr oximal bowel being dilated, likely due to incipient obstruction, but otherwise normal. The decision was made to perform an ileocecectomy since the involvement of the terminal ileum extended all the way to the ileocecal valve. Once the terminal ileum and cecum were adequately mobilized, the bowel was externalized through the wound protector and the mesentery of the terminal ileum divided close to the wall of the bowel using LigaSure. Towels were placed around the bowel and enterotomies created fozia g the antimesenteric edge of the ascending colon and the distal ileum. A stapled [id number] functi onal end-to-end anastomosis was created and the bowel was then transected with a second fire of the s tapler transversely excluding the enterotomy sites. The anastomosis was palpated and was found to be widely patent. The specimen was passed from the field to be sent to Pathology. The mesenteric defe ct was closed with [id number] sutures and the transverse staple line inverted with Lembert sutur es. The angle of sorrow was reinforced with a Lembert suture as well and hemostasis verified. The b owel was returned to the abdominal cavity and copious irrigation carried out with 6 liters of warm no rmal saline until all return was clear. All interloop adhesions were broken up and irrigation hamzah d out between all loops of bowel. A ALDEN drain was then placed into the pelvis with the end looping up into the right pericolic gutter and this was secured to the skin. Then, the laparoscopic ports were removed and hemostasis verified. The GelPort was then removed and the omentum drawn down over the s mall intestine. Seprafilm was placed between this and the anterior abdominal wall and the fascial de fect was closed with a running PDS suture. The skin incision was copiously irrigated and the skin re approximated at intervals with skin joe. A Prevena wound VAC was placed and the patient was extu bated and taken to the recovery room in good condition. Estimated blood loss was minimal. There wer e no complications. SPECIMEN: Purulent peritoneal fluid for Gram stain and culture and terminal ileum and cecum for path ology.
== END 2017-10-24 15:27 | disposition home or self-care (01) | DRG 329 ==
LOC: ERS 12:36 → SURG A 17:06
PROVIDERS: ADMIT Surgery; ATTEND Surgery
PROC: 0DTH4ZZ Resection of Cecum, Percutaneous Endoscopic Approach (ICD-10-PCS; principal; 2017-10-18)
DX: K50.918 Crohn's disease, unspecified, with other complication (principal); K63.1 Perforation of intestine (nontraumatic); K21.9 Gastro-esophageal reflux disease without esophagitis; B96.20 Unspecified Escherichia coli [E. coli] as the cause of diseases classified elsewhere
CPT/HCPCS: 36415; 74177; 80048; 80053; 81025; 83690; 85025; 86480; 86706; 87040; 87070; 87076; 87077; 87186; 87205; 87340; 88307; 96361; 96365; 96368; 96375; A4216; J0131; J1100; J1170; J1650; J1885; J2001; J2250; J2405; J2543; J2704; J3010; J3475; J3480; J7050; S0028

== ENCOUNTER 2019-03-10 18:21 | Emergency (ER) | payer OTHER ==
[2019-03-10] MEDS ORDERED: Acetaminophen 500 MG TAB ONE (20:36)
[2019-03-10] MEDS ORDERED: Ketorolac Tromethamine 30 MG/ML VIAL ONE (20:36)
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
== END 2019-03-10 22:15 | disposition home or self-care (01) ==
LOC: ERS 18:21
DX: S13.9XXA Sprain of joints and ligaments of unspecified parts of neck, initial encounter (principal); I10 Essential (primary) hypertension; D64.9 Anemia, unspecified; Z79.899 Other long term (current) drug therapy; V43.52XA Car driver injured in collision with other type car in traffic accident, initial encounter
CPT/HCPCS: 71046; 72040; 96372; J1885

== ENCOUNTER 2022-05-22 09:09 | Emergency (ER) | payer SELFPAY | END 2022-05-22 09:15 | LOC: ERS 09:09 | DX: Z53.21 Procedure and treatment not carried out due to patient leaving prior to being seen by health care provider (principal) ==